=== PATIENT | male | born 1955 | race Caucasian/White ===

== ENCOUNTER 2017-02-15 07:06 | Observation (INO) | payer BC ==
[2017-02-03 13:43] LABS: HEMATOCRIT 47.9 % (40.0-51.0)
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
[~2017-02-15 07:06] MED LIST: ALEVE220 MG PO; ZYRTEC ALLGY10 MG PO
[2017-02-16] MEDS ORDERED: PERCOCET 10/3251 TAB PO (17:12)
[2017-02-16] MEDS ORDERED: V5 PO (17:12)
== END 2017-02-16 18:46 | disposition home or self-care (01) ==
LOC: SDC 07:06 → 3SO 13:27
PROVIDERS: Orthopaedic Surgery
PROC: 0SB20ZZ Excision of Lumbar Vertebral Disc, Open Approach (ICD-10-PCS; principal; 2017-02-15 08:45)
PROC: 01NB0ZZ Release Lumbar Nerve, Open Approach (ICD-10-PCS; 2017-02-15 08:45)
DX: M51.16 Intervertebral disc disorders with radiculopathy, lumbar region (principal); M48.06 Spinal stenosis, lumbar region; M43.17 Spondylolisthesis, lumbosacral region; F17.210 Nicotine dependence, cigarettes, uncomplicated; Z98.890 Other specified postprocedural states; Z79.899 Other long term (current) drug therapy
CPT/HCPCS: 85014; 85018; 88304; 88311; 93005; 96374; 96375; 96376; A9270-GY; C1768; G0378; J0690; J1885; J2250; J2405; J2710; J3010